=== PATIENT | female | born 1985 | race Two or more races ===

== ENCOUNTER 2017-11-14 15:33 | Emergency (ER) | payer OTHER ==
[~2017-11-14] VITALS: Ht 162.6 cm; Wt 68.5 kg
[2017-11-14] MEDS ORDERED: PEPCID40 MG (15:53)
[2017-11-14] MEDS ORDERED: NEXIUM5 MG (15:54)
[2017-11-14] MEDS ORDERED: OBTREX DHA PRE1 EACH (15:54)
[2017-11-14] MEDS ORDERED: CALCIUM500 M2 (15:54)
[2017-11-14] MEDS ORDERED: FLONASE16 GM (15:56)
== END 2017-11-14 21:24 | disposition home or self-care (01) ==
LOC: ER 15:33
DX: O23.41 Unspecified infection of urinary tract in pregnancy, first trimester (principal); Z34.01 Encounter for supervision of normal first pregnancy, first trimester

== ENCOUNTER 2018-05-10 15:00 | Inpatient (IN) | payer OTHER ==
[~2018-05-10] VITALS: Ht 165.1 cm; Wt 76.2 kg
[~2018-05-10 15:00] MED LIST: CALCIUM500 M2; FLONASE16 GM; NEXIUM5 MG; OBTREX DHA PRE1 EACH; PEPCID40 MG
== END 2018-05-18 14:06 | DRG 806 ==
LOC: LDR 05-15 12:06 → OB/GYN 05-15 14:34 → LDR 05-15 17:22 → OB/GYN 05-17 10:27
PROVIDERS: ADMIT Obstetrics & Gynecology
PROC: 4A1HXCZ Monitoring of Products of Conception, Cardiac Rate, External Approach (ICD-10-PCS; 2018-05-15)
PROC: 10E0XZZ Delivery of Products of Conception, External Approach (ICD-10-PCS; principal; 2018-05-16)
PROC: 0KQM0ZZ Repair Perineum Muscle, Open Approach (ICD-10-PCS; 2018-05-16)
PROC: 3E033VJ Introduction of Other Hormone into Peripheral Vein, Percutaneous Approach (ICD-10-PCS; 2018-05-16)
DX: O70.1 Second degree perineal laceration during delivery (principal); O41.03X0 Oligohydramnios, third trimester, not applicable or unspecified; Z37.0 Single live birth; Z3A.37 37 weeks gestation of pregnancy